=== PATIENT | female | born 1965 | race African-American/Black ===

== ENCOUNTER → 2017-02-20 | Outpatient (CLI) | payer MEDICARE, OTHER ==
[~2017-02-20] MED LIST: ALBUTEROL17 GM INH; AMLODIPINE BESYL5 MG PO; CALCIUM 500 +1 EAC5 PO; COUMADIN4 MG PO; FOLIC ACID800 MCG PO; LEVOTHYROXINE150 MC1 PO; MUCINEX DM ER1 EACH PO; MULTI VITAMIN1 EACH PO; NEURONTIN300 MG PO; PERCOCET10 PO; POTASSIUM CHLO10 MEQ PO; SPIRONOLACTONE50 MG PO; VITAMIN B12 INJ; VITAMIN D350000 UNIT PO; VOLTAREN100 GM TOP; ZANTAC150 M1 PO
--- NOTE | ~2017-02-20 | US84 ---
[id number] [facility]. [facility] [address]. [place], [place] [address] [id number] O MR#: [id number] Acc #: [id number] NAME: YESSICA PAIGE : 1965 SEX: F STUDY DATE/TIME: 02/20/2017 12:06 UNIT: [facility] ROOM: STUDY DESCRIPTION: US LE Veins Complete Maximiliano Stdy Attending Physician: Taran Babb M.D. Referring Physician: Taran Babb M.D. Ordering Physician: Taran Babb M.D. Primary Care Physician: Chiki Ball M.D. MEDICAL IMAGING REPORT This report is preliminary unless electronic signature is present EXAM Bilateral leg vein Doppler, 02/20/2017 INDICATION Lower extremity swelling in both legs for the last 3 days. Patient currently on blood thinners. Prior history of DVT in the right leg. FINDINGS Ball-scale, color flow, and spectral Doppler waveform analysis is performed of the venous system in both legs. Recent prior studies are unavailable for comparison. On the left side, all of the venous structures demonstrate normal compressibility and color flow. No superficial or deep venous thrombosis is seen. On the right side, there is some noncompressible DVT noted in the superficial femoral vein in the proximal to mid portions. This has a chronic appearance overall and it is somewhat echogenic. Correlation with outside prior study is recommended. The remainder of the right lower extremity venous system is widely patent. IMPRESSION 1. Probable mild chronic DVT in the right superficial femoral vein. Correlation with outside more recent prior study is recommended. 2. Negative left lower extremity venous Doppler. 3. No definite acute DVT in the right leg. Dictated by... Michael Nguyen Jr., M.D. THIS IS AN ELECTRONICALLY VERIFIED REPORT Michael Nguyen Jr., M.D. at 02/21/2017 7:20 AM GIANLUCA/robert TD: 02/20/2017 21:50 JOB #: [id number] MEDICAL IMAGING REPORT Page 1 of 1 COPY
--- NOTE | ~2017-02-20 | CO ---
Unit #: [id number] #: [id number] Patient: YESSICA PAIGE [id number] [address] [place], [place] [address] [id number] O MR#: [id number] NAME: YESSICA PAIGE ROOM: Age: 51 Sex: F Admission Date: 02/20/2017 : 1965 Attending Physician: Taran Babb M.D. Primary Care Physician: Chiki Ball M.D. CONSULTATION REPORT REASON FOR CONSULTATION Preoperative medical evaluation prior to left total knee arthroplasty scheduled by Dr. Babb for 03/06/2017. HISTORY OF PRESENT ILLNESS The patient is a 51-year-old female, who presents to preprocedural screening for the reason as indicated above. She complains of right knee pain, but has no other complaints at the time of this interview. She denies upper chest, arm, neck, jaw, back pain or pressure with the exception of intermittent left shoulder discomfort secondary to history of rotator cuff repair. She denies PND or orthopnea. She has a history of mild obstructive apnea and was evaluated by Dr. Garay recently and given preop pulmonary clearance. She is not on CPAP. She denies dyspnea on exertion or shortness of air. She describes intermittent lightheadedness and dizziness without clear association to position changes. She denies presyncope, syncope, or palpitations. She has been evaluated by Dr. Babb and scheduled for the above-referenced procedure. PAST MEDICAL HISTORY 1. Osteoarthritis. 2. History of DVT and PE, on chronic anticoagulation with Coumadin, established and followed by Dr. Rollins at [facility]. 3. Morbid obesity. BMI 44. 4. Mild obstructive sleep apnea without need for CPAP per Dr. Garay. 5. Gastroesophageal reflux disease. 6. Hypothyroidism. 7. B12 deficiency, status post gastric bypass. 8. Hypertension. 9. History of low back pain. 10. History of asthma. 11. Last dental cleaning in 09/2016. PAST SURGICAL HISTORY 1. Lap band in 2002. 2. Lap band removal. 3. Gastric bypass in 2014. 4. x2. 5. Bilateral breast reduction. 6. Tummy tuck procedure. 7. Bilateral carpal tunnel surgery. 8. Back surgery. 9. I and D on back wound x4. 10. Left rotator cuff repair. 11. History of headaches. Unit #: [id number] #: [id number] Patient: YESSICA PAIGE Please note, the patient denies personal and family history of complications to anesthesia. ALLERGIES Denies latex allergy and medication allergies; however, the patient reports GI upset is an adverse reaction to ibuprofen. CURRENT MEDICATIONS Levothyroxine sodium 150 mcg p.o. every morning, Zantac 150 mg p.o. b.i.d., Coumadin 8 mg p.o. every evening, Vitamin D3 50,000 units p.o. weekly, Ventolin 1 puff inhaled q.6 hours p.r.n. shortness of air, folic acid 800 mcg p.o. every morning, Mucinex DM ER 600/30 tab one p.o. b.i.d. p.r.n. cold symptoms, potassium chloride ER 10 mEq p.o. every evening, spironolactone 50 mg p.o. every evening, Voltaren 100 g topically q.i.d. p.r.n. pain., Percocet 10/325 mg tab one p.o. t.i.d. p.r.n. pain., amlodipine besylate 5 mg p.o. every evening, Neurontin 300 mg p.o. t.i.d. p.r.n. lower extremity pain, Vitamin B12 injection monthly, multivitamin one p.o. daily, calcium 500+ vitamin D 200 caplet one p.o. every morning. SOCIAL HISTORY The patient is a former smoker, but quit in the . Reports occasional EtOH use and denies illicit drug use. FAMILY HISTORY Mother; diabetes and hypertension. Father; heart disease, hypertension, and mini strokes. REVIEW OF SYSTEMS Chronic bilateral lower extremity edema, left shoulder pain, strong smelling urine without dysuria or hematuria or urinary frequency. Thinning hair. She uses a cane to assist with ambulation. No wounds. A 10-point review of systems is conducted and otherwise negative except as indicated under history of present illness above. PHYSICAL EXAMINATION GENERAL: A 51-year-old female, awake and alert in no acute distress. VITAL SIGNS: Temperature 97.2, heart rate 93, respiratory rate 16, blood pressure 144/90, oxygen saturation 100% on room air. HEENT: Atraumatic and normocephalic. Sclerae anicteric. No discharge from eyes, ears, or nares. LYMPH: No preauricular, postauricular, tonsillar, submental, anterior or posterior cervical adenopathy. ENDOCRINE: No thyromegaly, thyroid nodules, or tenderness. RESPIRATORY: Clear to auscultation in all maxwell bilaterally without wheezes, rhonchi, or rales. CARDIOVASCULAR: S1, S2. Regular rate and rhythm without murmur or rub. GI: Obese. Bowel sounds are positive x4. Soft, nontender, nondistended. EXTREMITIES: 2 to 3+ bilateral lower extremity edema right greater than left. MUSCULOSKELETAL: Strength 5/5 in all extremities bilaterally to flexion and extension. NEUROLOGIC: Alert and oriented x3. Speech clear. Cranial nerves II through XII are grossly intact. Follows directions for examination. DIAGNOSTIC STUDIES LABORATORY RESULTS: WBC 5.6, hemoglobin 12.5, hematocrit 38.6, platelets 251,000. Sodium 141, potassium 4.0, chloride 107, CO2 26, glucose 79, BUN Unit #: [id number] #: [id number] Patient: YESSICA PAIGE DEIRDRE 19, creatinine 0.9, calcium 8.8. AST 32, ALT 25, alkaline phos 110, bilirubin total 0.6, total protein 6.9, albumin 3.8. PT 31.4, INR 2.9. Urinalysis; leukocyte esterase 2+, nitrite negative, protein negative, glucose negative, blood trace, rbc's 2 to 5, wbc's 50 to 100, bacteria 4+, squamous cells none seen, U-hyal 5 to 10. Culture indicated and pending at this time. MRSA nasal swab report pending at this time. TSH and free T4 of blood in lab pending at this time. IMAGING STUDIES: Two-view chest x-ray, date of study 10/12/2016, no acute abnormalities per report. CARDIOVASCULAR STUDIES: 12-lead EKG, date of study 10/12/2016, findings, sinus rhythm, LVH, borderline T abnormalities in inferior leads. Electronically signed by Andrew Perez per report. Bilateral lower extremity duplex venous Doppler report pending at this time IMPRESSION The patient is a 51-year-old female, who presents to preprocedural screening for; 1. Preoperative medical evaluation prior to left total knee arthroplasty. The patient's Iyer revised cardiac risk index is equal to 0.4% to 1.0% based on information available today. Given the patient's family history of coronary artery disease and risk factors of obesity and hypertension, I have recommended the patient have preoperative cardiac clearance. I have discussed with the patient that her risk is for fatal or nonfatal myocardial infarction, cardiopulmonary arrest, and/or pulmonary edema. She has verbalized understanding of the plan for preop cardiac clearance and is in agreement. 2. History of deep venous thrombosis and pulmonary embolism, on chronic anticoagulation with Coumadin. The patient's INR is therapeutic today. Duplex venous Dopplers are pending at this time as ordered by Dr. Babb. 3. Morbid obesity. Body mass index of 44.35. The patient had a gastric bypass procedure in 2014, but states that she is regaining some of the weight at this time. 4. Obstructive sleep apnea (mild), not on CPAP. The patient has received preoperative pulmonary clearance from Dr. Garay. We will monitor for OSCAR per stop Bang protocol postoperatively. 5. Gastroesophageal reflux disease. Continue current medications and monitor for nausea and vomiting. 6. Hypothyroidism. Check TSH and free T4 and continue current home dose of Synthroid at home. 7. Probable urinary tract infection. The patient is symptomatic today. Given her prescription for Macrobid 100 mg tab one p.o. q.12 hours x7 days #14 no refills, pending urine culture and sensitivity result. The patient is aware of this medication, may need to be changed based on C and S report. 8. Abnormal preop 12-lead EKG. The patient is asymptomatic today. Please refer to #1 above. 9. B12 deficiency, status post gastric bypass. The patient is currently receiving B12 injections. 10. Hypertension. Blood pressure stable today. We will monitor and adjust medications accordingly postoperatively. 11. History of back pain, stable. 12. History of asthma, stable. We will continue inhaled bronchodilator postoperatively. 13. Health maintenance. Dental cleaning performed in 09/2016. The patient is awaiting documentation from her dentist at Dr. Babb's office at this time. Unit #: [id number] #: [id number] Patient: YESSICA PAIGE DEIRDRE Thank you for allowing us to participate in care of this patient. We will gladly follow her for postop medical management pending order of Dr. Babb and preoperative cardiac clearance. Dictated by... Nika Mchugh A.P.R.N. for Shelly Aguilar/lucio TD: 02/20/2017 18:28 JOB #: [id number] CONSULTATION REPORT Page 1 of 1 X Nika Mchugh PAYROLL DIRECTOR X CONSULTATION REPORT
[2017-02-20 08:58] LABS: HEMATOCRIT 38.6 % (35.0-45.0); HEMOGLOBIN 12.5 gm/dL (12.0-16.0); MEAN CELL VOLUME 88.6 FL (83-96); MEAN CORPUSCULAR HEMOGLOBIN 28.7 PG (28-34); MEAN CORPUSCULAR HGB CONC 32.4 g/dL (30-36); MEAN PLATELET VOLUME 8.5 FL (6.5-11.5); RED BLOOD COUNT 4.36 X10e (3.90-5.30); RED CELL DISTRIBUTION WIDTH 15.1 % (11.0-15.5); WHITE BLOOD COUNT 5.6 X10e3 (4.0-10.5)
[2017-02-20 08:59] LABS: URINE APPEARANCE CLEAR; URINE BILIRUBIN NEG (NEG); URINE BLOOD TRACE (NEG); URINE COLOR YELLOW; URINE GLUCOSE NEG (NEG); URINE KETONE NEG (NEG); URINE LEUKOCYTE ESTERASE 2+ (NEG); URINE NITRATE NEG (NEG); URINE PROTEIN NEG (NEG); URINE SPECIFIC GRAVITY 1.024 (1.003-1.035); URINE UROBILINOGEN 0.2 MG/DL (NEG)
[2017-02-20 09:01] LABS: CULTURE INDICATED? YES; URINE BACTERIA AUWI 4+ (NEGATIVE); URINE SQUAMOUS EPITHELIAL CELL NONE SEEN /[HPF]; UWBCS1 AUWI 50-100 (0-5)
[2017-02-20 09:12] LABS: INR 2.9; PROTHROMBIN TIME (PATIENT) 31.4 SECONDS (10.0-11.7)
[2017-02-20 09:37] LABS: ALBUMIN SERUM 3.6 g/dL (3.5-5.0); BILIRUBIN,TOTAL 0.6 mg/dL (0.2-2.0); BUN/CREATININE RATIO 21.11; CALCIUM SERUM 8.8 mg/dL (8.4-10.2); CREATININE SERUM 0.9 mg/dL (0.6-1.4); GLOM FILT RATE Estimated 85.9 mL/min (>60); PROTEIN TOTAL SERUM 6.9 g/dL (6.0-8.3)
[2017-02-20 12:29] LABS: THYROID STIMULATING HORMONE 5.12 uIU/ml (0.34-5.60)
[2017-02-20 12:36] LABS: FREE THYROXIN (T4) 1.14 ng/dL (0.58-1.64)
== END | disposition home or self-care (01) ==
LOC: CAMB 08:00
PROVIDERS: Orthopaedic Surgery
DX: Z01.818 Encounter for other preprocedural examination (principal); M17.12 Unilateral primary osteoarthritis, left knee; E07.9 Disorder of thyroid, unspecified; K21.9 Gastro-esophageal reflux disease without esophagitis; M79.604 Pain in right leg; M79.605 Pain in left leg; M79.89 Other specified soft tissue disorders; Z86.718 Personal history of other venous thrombosis and embolism; Z87.01 Personal history of pneumonia (recurrent); Z79.01 Long term (current) use of anticoagulants
CPT/HCPCS: 36415; 80053; 81003; 84439; 84443; 85027; 85610; 86850; 86900; 86901; 87070; 87086; 87088; 87186; 93970

== ENCOUNTER 2017-03-06 06:33 | Inpatient (IN) | payer MEDICARE, OTHER ==
[~2017-03-06] VITALS: Ht 165.1 cm; Wt 99.5 kg
--- NOTE | ~2017-03-06 | DS ---
Unit #: [id number] #: [id number] Patient: YESSICA PAIGE [id number] [address] [place], [place] [address] [id number] I MR#: [id number] NAME: YESSICA PAIGE ROOM: 45 Age: 51 Sex: F Admission Date: 03/06/2017 : 1965 Discharge Date: 03/09/2017 Attending Physician: Taran Babb M.D. Primary Care Physician: Chiki Ball M.D. DISCHARGE SUMMARY ADMITTING DIAGNOSIS Primary localized osteoarthritis of the left knee. DISCHARGE DIAGNOSIS Primary localized osteoarthritis of the left knee. PROCEDURE IN THE HOSPITAL Left total knee. HOSPITAL COURSE Patient was admitted on 03/06 and taken to the operating room where she underwent a left total knee replacement. Postoperatively, she has done well. Her wound is healing appropriately. She is comfortable on oral pain medicine. She is ambulating short distances. It is felt she can be discharged to the [facility] unit for further therapy and gait training. She is full weightbearing. She is on Coumadin. We will check her pro-time tomorrow and Monday. Her INR at the time of discharge is 1.5, but we have increased her Coumadin dose today to 10 mg. She will have her therapy for range of motion and strengthening in rehab. MEDICATIONS Her medications are her routine home medicines plus the Coumadin and the Percocet for pain. CONDITION ON DISCHARGE Improved. DISPOSITION residential unit on the third floor. Dictated by... Shelly Palmer/sonia TD: 03/09/2017 10:32 JOB #: [id number] Unit #: [id number] #: [id number] Patient: YESSICA PAIGE DISCHARGE SUMMARY Page 1 of 1 X Taran Babb MD X DISCHARGE SUMMARY
--- NOTE | ~2017-03-06 | OR ---
Unit #: [id number] #: [id number] Patient: YESSICA PAIGE [id number] [address] [place], [place] [address] [id number] I MR#: [id number] NAME: YESSICA PAIGE ROOM: 452 Date of Procedure: 03/06/2017 Admission Date: 03/06/2017 Surgeon: Taran Babb M.D. : 1965 Attending Physician: Taran Babb M.D. Primary Care Physician: Chiki Ball M.D. OPERATIVE REPORT PREOPERATIVE DIAGNOSIS Primary localized osteoarthritis of the left knee. POSTOPERATIVE DIAGNOSIS Primary localized osteoarthritis of the left knee. PROCEDURE PERFORMED Left total knee. ASSISTANTS Jessica Palma and Mike Collins. ANESTHESIA Adductor canal block plus general. ESTIMATED BLOOD LOSS 100 mL. INDICATIONS FOR SURGERY This is a 51-year-old lady with severe pain in her left knee. She has had pain for months. It is getting progressively worse. Her x-rays show she has obey-my-epou with subchondral sclerosis and periarticular osteophytes. She is brought to the hospital today for left total knee. DESCRIPTION OF PROCEDURE The patient was brought to the holding room, given 3 g of Ancef. This will be continued postop, but discontinued within 23 hours from the start time of surgery. She was given an adductor canal block, brought back to the operating room, given a general anesthetic. Tourniquet placed around the left thigh. The left leg was prepped and draped in a sterile fashion. Tourniquet inflated to 300. A straight anterior skin incision was made. The subcutaneous dissected away and a medial arthrotomy performed. Patella was slid to the side. Osteophytes removed from the femur. The intramedullary guide was used and a 6-degree valgus cut was made on the distal femur. The femur was sized using the ATTUNE sizing guide, it was found to be a size 6. The anterior-posterior cutting block was applied. Rotation was checked in the knee. Anterior and posterior cuts were made along with the chamfer cuts. We then made the trochlear groove cut. Proximal tibial cut was made using a 0-degree cutting block and it was sized at a 5. Any remaining osteophytes were removed from the posterior femoral condyles. Any remaining meniscal fragments debrided. We then injected the posterior capsule and the periosteum with ropivacaine. The Unit #: [id number] #: [id number] Patient: YESSICA PAIGE trial femur was applied and the drill holes were made for lugs on the femoral component. Trial tibia was applied with a 5 mm insert. The knee came to full extension and good stability in extension and flexion. Rotation of the tibia was marked and the external alignment guide showed appropriate alignment of the limb. The patella was grasped with 2 towel clips, and it measured 24 mm thick, cut smooth at about 13 and a 38 patella was the appropriate size. The 3 drill holes were made. Trial patella applied and it tracked properly. We then removed all the trials, used the drill and punch for the tibial tray. The knee was irrigated and dried while the cement was mixed and all 3 components were cemented simultaneously. Once again, it was a size 38 patella, size 6 femur, and a size 5 tibial base plate with a 5 mm insert from [employer] knee System. Any excess cement was removed. After the cement was hardened, the rest of the ropivacaine mixture had been injected. The tourniquet was released. The knee was irrigated with Betadine and then bacitracin and then closed using 0 Ethibond in the arthrotomy, 0 and 2-0 Vicryl in the subcutaneous, and eren in the skin. high school assistant principal, Jessica Palma was present throughout the entire case. Dictated by... Shelly Palmer/lucio TD: 03/08/2017 12:17 JOB #: [id number] OPERATIVE REPORT Page 1 of 1 X Taran Babb MD PROCEDURE OPERATIVE NOTE
[2017-03-06 07:25] LABS: URINE APPEARANCE CLEAR; URINE BILIRUBIN NEG (NEG); URINE BLOOD NEG (NEG); URINE COLOR YELLOW; URINE GLUCOSE NEG (NEG); URINE KETONE NEG (NEG); URINE LEUKOCYTE ESTERASE NEG (NEG); URINE NITRATE NEG (NEG); URINE PROTEIN NEG (NEG); URINE SPECIFIC GRAVITY 1.028 (1.003-1.035); URINE UROBILINOGEN 0.2 MG/DL (NEG)
[2017-03-06 07:30] LABS: URINE SOURCE CATH
[2017-03-06 07:31] LABS: CULTURE INDICATED? NO
[2017-03-06 07:35] LABS: PROTHROMBIN TIME (PATIENT) 11.4 SECONDS (10.0-11.7)
[2017-03-06 20:35] LABS: CALCIUM SERUM 8.3 mg/dL (8.4-10.2); GLOM FILT RATE Estimated 75.6 mL/min (>60); POTASSIUM 5.3 mmol/L (3.5-5.1)
[2017-03-07 03:12] LABS: HEMATOCRIT 36.5 % (35.0-45.0); HEMOGLOBIN 11.9 gm/dL (12.0-16.0)
[2017-03-07 03:34] LABS: INR 1.2; PROTHROMBIN TIME (PATIENT) 13.1 SECONDS (10.0-11.7)
[2017-03-07 04:12] LABS: CALCIUM SERUM 8.5 mg/dL (8.4-10.2); GLOM FILT RATE Estimated 75.6 mL/min (>60); POTASSIUM 5.2 mmol/L (3.5-5.1)
[2017-03-08 02:43] LABS: HEMATOCRIT 34.3 % (35.0-45.0)
[2017-03-08 02:48] LABS: INR 1.5; PROTHROMBIN TIME (PATIENT) 16.5 SECONDS (10.0-11.7)
[2017-03-08 02:59] LABS: BUN/CREATININE RATIO 25.55; CALCIUM SERUM 8.4 mg/dL (8.4-10.2); CREATININE SERUM 0.9 mg/dL (0.6-1.4); GLOM FILT RATE Estimated 85.9 mL/min (>60); MAGNESIUM 2.1 mg/dL (1.6-3.0); POTASSIUM 4.9 mmol/L (3.5-5.1)
[2017-03-09 04:00] LABS: INR 1.5; PROTHROMBIN TIME (PATIENT) 16.2 SECONDS (10.0-11.7)
[2017-03-09 04:08] LABS: BUN/CREATININE RATIO 23.75; CALCIUM SERUM 8.3 mg/dL (8.4-10.2); CREATININE SERUM 0.8 mg/dL (0.6-1.4); MAGNESIUM 1.9 mg/dL (1.6-3.0); POTASSIUM 4.2 mmol/L (3.5-5.1)
== END 2017-03-09 11:55 | DRG 470 ==
LOC: CSUR 06:33 → C4B 08:14 → CPACUOF 08:14 → CSUR 08:30 → CPACUOF 10:16 → CSUR 10:16 → C4B 11:05 → CPACUOF 11:05 → C4B 03-09 11:55
PROVIDERS: Nurse Practitioner; Orthopaedic Surgery
PROC: 0SRD0J9 Replacement of Left Knee Joint with Synthetic Substitute, Cemented, Open Approach (ICD-10-PCS; principal; 2017-03-06 08:30)
DX: M17.12 Unilateral primary osteoarthritis, left knee (principal); D62 Acute posthemorrhagic anemia; I10 Essential (primary) hypertension; Z68.41 Body mass index [BMI] 40.0-44.9, adult; E03.9 Hypothyroidism, unspecified; K21.9 Gastro-esophageal reflux disease without esophagitis; Z86.718 Personal history of other venous thrombosis and embolism; E66.01 Morbid (severe) obesity due to excess calories; Z83.3 Family history of diabetes mellitus; Z82.3 Family history of stroke; G47.33 Obstructive sleep apnea (adult) (pediatric); R73.9 Hyperglycemia, unspecified; Z82.49 Family history of ischemic heart disease and other diseases of the circulatory system; Z86.711 Personal history of pulmonary embolism
CPT/HCPCS: 80048; 81003; 82947; 83735; 84132; 84703; 85014; 85018; 85610; 94010; 94664; 94760; 97110; 97116; 97161; 97166; 97530; 97535; C1713; C1776; G8978-GP; G8979-GP; G8980-GP; G8987-GO; G8988-GO; G8989-GO; J0131; J0171; J0690; J0735; J1100; J1170; J1650; J1885; J2250; J2405; J2795; J3010